=== PATIENT | female | born 1975 | race Caucasian/White ===

== ENCOUNTER 2016-12-09 03:14 | Day surgery (SDC) | payer MEDICAID ==
[~2016-12-09] VITALS: Ht 170.2 cm; Wt 96.6 kg
--- NOTE | 2016-12-09 03:21 | NUR ---
PT TAKEN TO BED 5
--- NOTE | 2016-12-09 03:25 | NUR ---
41/F 3MOS A1 BIB W/C/O VAGINAL BLEED [id number]. STATES SHE BELIEVES SHE IS HAVING A MISCARRIAGE. ER MD AWARE. PT DENIES N/V/D; SKIN IS PINK/WARM/DRY; AAOX4 WITH EVEN AND STEADY GAIT; LUNGS CLEAR BL; HR EVEN AND REGULAR; PT DENIES ANY FEVER, CP, SOB, OR COUGH AT THIS TIME; PATIENT STATES PAIN OF 5/10 AT THIS TIME; VSS; PATIENT POSITIONED FOR COMFORT; HOB ELEVATED; BEDRAILS UP X2; BED DOWN. ER MD MADE AWARE OF PT STATUS.
[2016-12-09 03:30] VITALS: BP 139/76
--- NOTE | 2016-12-09 03:37 | NUR ---
Dr. Cuevas evaluating patient at bedside.
--- NOTE | 2016-12-09 03:39 | NUR ---
Female Overhead Worker Marisol Michele (EMT) accompanied ER MD for female patient Pelvic Exam.
[2016-12-09] MEDS ORDERED: NACL 0.9% 1,000 ML IV ONE (03:45)
--- NOTE | 2016-12-09 04:25 | NUR ---
ULTRASOUND IS AT BEDSIDE
[2016-12-09] MEDS ORDERED: KETOROLAC 30 MG/ML VIAL IM ONE (05:15)
--- NOTE | 2016-12-09 05:15 | NUR ---
Female Sand Screener Marisol Michele (EMT) accompanied ER MD for female Pelvic Exam.
[2016-12-09 06:15] VITALS: BP 127/82
--- NOTE | 2016-12-09 06:15 | NUR ---
Patient will be admitted to care of DR HELENA OVERTON . Admited to [facility]. Will go to room 107A. Belongings list completed. Report to OSCAR DEL CASTILLO.
--- NOTE | 2016-12-09 07:05 | NUR ---
RECEIVED REPORT FROM ABUNDIO MUNOZ. PT IS A 41 YEAR OLD FEMALE NEW ADMIT FROM ER WITH A DIAGNOSIS OF INCOMPLETE , AAO X4, SKIN INTACT IV ON LEFT FA AND RIGHT AC BOTH FLUSHED PATENT AND INTACT, VITALS STABLE, NO S/S OF RESPIRATORY DISTRESS OR DISCOMFORT NOTED, DISCUSSED PLAN OF CARE, PT AND AT BEDSIDE VERBALIZED UNDERSTANDING, SAFETY/FALL PRECAUTION ENFORCED, CALL LIGHT WITHIN REACH, WILL CONTINUE TO MONITOR.
--- NOTE | 2016-12-09 07:50 | NUR ---
PT LEFT FOR SURGERY PROCEDURE BY Ila JOHN
[2016-12-09] MEDS ORDERED: ONDANSETRON 4 MG/2 ML VIAL IVP PRN (08:00)
[2016-12-09] MEDS ORDERED: IBUPROFEN 800 MG TAB PO PRN (08:00)
[2016-12-09] MEDS ORDERED: MORPHINE SULFATE 4 MG/ML SYR IM/IVP PRN (08:00)
[2016-12-09] MEDS ORDERED: ACETAMINOPHEN/CODEINE 300/30MG 1 TAB PO PRN (08:00)
[2016-12-09] MEDS ORDERED: DEXAMETHASONE 4 MG/ML VIAL IVP ONE (08:12)
[2016-12-09] MEDS ORDERED: fentaNYL 0.05 MG/ML VIAL ONE (08:12)
[2016-12-09] MEDS ORDERED: PROPOFOL 200 MG/20 ML VIAL IV ONE (08:12)
[2016-12-09] MEDS ORDERED: KETOROLAC 30 MG/ML VIAL IVP ONE (08:12)
[2016-12-09] MEDS ORDERED: SEVOFLURANE 250 ML BTL INH ONE (08:12)
[2016-12-09] MEDS ORDERED: ONDANSETRON 4 MG/2 ML VIAL IVP ONE (08:12)
--- NOTE | 2016-12-09 11:31 | NUR ---
PT AWAKE ALERT RESTING IN BED PULSE OX ON ROOM AIR 98
== END 2016-12-09 12:35 | disposition home or self-care (01) ==
LOC: MED 03:14 → MOR 06:13 → MTU 06:13 → MOR 12:35
PROVIDERS: ATTEND Obstetrics & Gynecology
DX: O03.4 Incomplete spontaneous abortion without complication (principal); I10 Essential (primary) hypertension; F32.9 Major depressive disorder, single episode, unspecified; G43.909 Migraine, unspecified, not intractable, without status migrainosus; K21.9 Gastro-esophageal reflux disease without esophagitis; M19.90 Unspecified osteoarthritis, unspecified site
CPT/HCPCS: 36415; 59812; 76815; 80053; 81001; 84702; 85025; 85610; 86886; 86900; 86901; 94760; 96360; 96372; 99285; J1100; J1885; J2405; J2704; J3010; J7120; Q0092